=== PATIENT | male | born 1955 | race Caucasian/White ===

== ENCOUNTER 2018-06-17 11:17 | Inpatient (IN) | payer OTHER ==
[~2018-06-17] VITALS: Ht 172.7 cm; Wt 78.0 kg
[2018-06-17] MEDS ORDERED: JANUMET 50-1,01 EACH PO (11:51)
[2018-06-17] MEDS ORDERED: HYZAAR PO (11:52)
[2018-06-22] MEDS ORDERED: HYZAAR 100-251 EACH PO (08:36)
[2018-06-22] MEDS ORDERED: HYZAAR PO (14:18)
[2018-06-28] MEDS ORDERED: TOPROL XL50 M1 PO (16:55)
[2018-06-28] MEDS ORDERED: TAMSULOSIN HCL0.4 MG PO (16:55)
[2018-06-28] MEDS ORDERED: Intestinex CAP PO (16:56)
== END 2018-06-28 17:55 | DRG 330 ==
LOC: O/R 06-22 05:55 → SURH 06-22 05:55 → MEDI 06-22 14:29 → SURH 06-22 14:29
PROVIDERS: Surgery
PROC: 07TB4ZZ Resection of Mesenteric Lymphatic, Percutaneous Endoscopic Approach (ICD-10-PCS; 2018-06-22)
PROC: 0DTF4ZZ Resection of Right Large Intestine, Percutaneous Endoscopic Approach (ICD-10-PCS; principal; 2018-06-22 09:00)
PROC: 30233N1 Transfusion of Nonautologous Red Blood Cells into Peripheral Vein, Percutaneous Approach (ICD-10-PCS; 2018-06-23)
PROC: 4A12X4Z Monitoring of Cardiac Electrical Activity, External Approach (ICD-10-PCS; 2018-06-23)
PROC: 4A033R1 Measurement of Arterial Saturation, Peripheral, Percutaneous Approach (ICD-10-PCS; 2018-06-25)
DX: D12.0 Benign neoplasm of cecum (principal); K56.0 Paralytic ileus; K91.89 Other postprocedural complications and disorders of digestive system; I10 Essential (primary) hypertension; E11.9 Type 2 diabetes mellitus without complications; D64.89 Other specified anemias; N40.1 Benign prostatic hyperplasia with lower urinary tract symptoms; R33.8 Other retention of urine

== ENCOUNTER 2018-06-30 18:33 | Inpatient (IN) | payer OTHER ==
[~2018-06-30] VITALS: Ht 172.7 cm; Wt 76.7 kg
[~2018-06-30 18:33] MED LIST: HYZAAR 100-251 EACH PO; HYZAAR PO; Intestinex CAP PO; JANUMET 50-1,01 EACH PO; TAMSULOSIN HCL0.4 MG PO; TOPROL XL50 M1 PO
[2018-07-05] MEDS ORDERED: INTESTINEX680 M1 PO (14:39)
[2018-07-16] MEDS ORDERED: METOPROLOL TART50 MG PO ×2 (12:56)
[2018-07-16] MEDS ORDERED: HumaLOG 100 UNIT/1 M SUBCUTANEO ×2 (12:56)
[2018-07-16] MEDS ORDERED: Intestinex CAP PO ×2 (12:56)
[2018-07-16] MEDS ORDERED: Lantus 1000 UNITS/10 SUBCUTANEO ×2 (12:56)
[2018-07-16] MEDS ORDERED: LOSARTAN-HCTZ1 EAC2 PO ×2 (12:56)
[2018-07-16] MEDS ORDERED: OYSTER SHELL C500 M1 PO ×2 (12:56)
[2018-07-16] MEDS ORDERED: CARdura 4MG TABLET PO ×2 (12:56)
[2018-07-16] MEDS ORDERED: TAMSULOSIN HCL0.4 MG PO ×2 (12:56)
[2018-07-16] MEDS ORDERED: AMLODIPINE BESY10 MG PO ×2 (12:56)
== END 2018-07-16 13:09 | disposition home or self-care (01) | DRG 862 ==
LOC: ER 18:33 → ICU-2 20:39 → SEC-K 07-01 13:33 → SURH 07-01 13:36 → ICU-2 07-01 13:43 → SURH 07-02 08:07
PROC: 4A033R1 Measurement of Arterial Saturation, Peripheral, Percutaneous Approach (ICD-10-PCS; 2018-06-30)
PROC: BW25YZZ Computerized Tomography (CT Scan) of Chest, Abdomen and Pelvis using Other Contrast (ICD-10-PCS; 2018-06-30)
PROC: BW24Y0Z Computerized Tomography (CT Scan) of Chest and Abdomen using Other Contrast, Unenhanced and Enhanced (ICD-10-PCS; 2018-07-01)
PROC: B32TYZZ Computerized Tomography (CT Scan) of Left Pulmonary Artery using Other Contrast (ICD-10-PCS; 2018-07-01)
PROC: B32SYZZ Computerized Tomography (CT Scan) of Right Pulmonary Artery using Other Contrast (ICD-10-PCS; 2018-07-01)
PROC: BW25Y0Z Computerized Tomography (CT Scan) of Chest, Abdomen and Pelvis using Other Contrast, Unenhanced and Enhanced (ICD-10-PCS; 2018-07-06)
PROC: 0W9G30Z Drainage of Peritoneal Cavity with Drainage Device, Percutaneous Approach (ICD-10-PCS; principal; 2018-07-07)
PROC: BW25Y0Z Computerized Tomography (CT Scan) of Chest, Abdomen and Pelvis using Other Contrast, Unenhanced and Enhanced (ICD-10-PCS; 2018-07-12)
DX: T81.43XA Infection following a procedure, organ and space surgical site, initial encounter (principal); K65.1 Peritoneal abscess; A41.9 Sepsis, unspecified organism; K56.690 Other partial intestinal obstruction; N17.8 Other acute kidney failure; K91.870 Postprocedural hematoma of a digestive system organ or structure following a digestive system procedure; Y83.2 Surgical operation with anastomosis, bypass or graft as the cause of abnormal reaction of the patient, or of later complication, without mention of misadventure at the time of the procedure; Y92.098 Other place in other non-institutional residence as the place of occurrence of the external cause; N40.0 Benign prostatic hyperplasia without lower urinary tract symptoms; I10 Essential (primary) hypertension; Z90.49 Acquired absence of other specified parts of digestive tract; E11.65 Type 2 diabetes mellitus with hyperglycemia; D64.89 Other specified anemias; I80.8 Phlebitis and thrombophlebitis of other sites; K52.89 Other specified noninfective gastroenteritis and colitis
CPT/HCPCS: 71275

== ENCOUNTER 2018-07-18 15:46 | Emergency (ER) | payer OTHER ==
[~2018-07-18] VITALS: Ht 172.7 cm; Wt 72.6 kg
[~2018-07-18 15:46] MED LIST changes: +AMLODIPINE BESY10 MG PO; +CARdura 4MG TABLET PO; +HumaLOG 100 UNIT/1 M SUBCUTANEO; +INTESTINEX680 M1 PO; +LOSARTAN-HCTZ1 EAC2 PO; +Lantus 1000 UNITS/10 SUBCUTANEO; +METOPROLOL TART50 MG PO; +OYSTER SHELL C500 M1 PO
== END 2018-07-18 18:41 | disposition home or self-care (01) ==
LOC: ER 15:46
DX: N45.1 Epididymitis (principal)